=== PATIENT | male | born 1975 | race Caucasian/White ===

== ENCOUNTER 2017-03-23 08:37 | Emergency (ER) | payer MEDICAID ==
[~2017-03-23] VITALS: Ht 177.8 cm; Wt 90.7 kg
[2017-03-23 08:37] VITALS: BP_SYST 121
--- NOTE | 2017-03-23 08:37 | NUR ---
BROUGHT IN BY [facility] [address] AND KANCHAN TORRES, PLACED IN BED #1 AND TRIAGED. REPORT GIVEN TO JAROD
--- NOTE | 2017-03-23 08:37 | NUR ---
Placed in room [1] . Placed on monitor worker, blood pressure machine and pulse oximeter. To gown for exam. Side rails up.
--- NOTE | 2017-03-23 08:39 | NUR ---
ER at bedside examining patient.
--- NOTE | 2017-03-23 08:40 | NUR ---
pt brought in by [id number],Per medics,pt at work, felt aora,took lorazepam then had witness tonic clonic seizure for 30seconds to 1 min, no oral trama.pt is post ictal on arrival.
--- NOTE | 2017-03-23 08:40 | NUR ---
Seizure precautions in place. Seizure pads applied to gurney. Side rails up.
[2017-03-23] MEDS ORDERED: LORazepam 2 MG/ML VIAL (FOR ER USE) IVP ONE ×2 (08:45→10:00)
--- NOTE | 2017-03-23 08:51 | NUR ---
blood drawn by financial accounting manager.
[2017-03-23] MEDS ORDERED: LORazepam 2 MG/ML VIAL (FOR ER USE) ONE (08:54)
[2017-03-23 09:08] LABS: BASOPHILS % (AUTO) 0.4 % (0.0-2.0); EOSINOPHILS # (AUTO) 0.1 K/uL (0.0-0.4); EOSINOPHILS % (AUTO) 0.9 % (0.0-4.0); HEMATOCRIT 48.1 % (36-54); HEMOGLOBIN 15.4 g/dL (14.0-18.0); LYMPHOCYTES # (AUTO) 3.9 K/uL (1.0-5.5); LYMPHOCYTES % (AUTO) 40.6 % (20.5-51.5); MEAN CORPUSCULAR HEMOGLOBIN 27 pg (27-31); MEAN CORPUSCULAR HGB CONC 32 % (32-36); MEAN CORPUSCULAR VOLUME 86 fL (79.0-98.0); MONOCYTES # (AUTO) 0.7 K/uL (0.0-1.0); MONOCYTES % (AUTO) 7.2 % (1.7-9.3); NEUTROPHILS # (AUTO) 4.9 K/uL (1.8-7.7); NEUTROPHILS % (AUTO) 50.9 % (40.0-70.0); PLATELET COUNT (AUTO) 216 K/uL (130-430); RED BLOOD CELL COUNT(AUTO) 5.62 MIL/uL (4.2-6.2); RED CELL DISTRIBUTION WIDTH 12.6 % (9.0-15.0); WHITE BLOOD COUNT (AUTO) 9.6 K/uL (4.8-10.8)
[2017-03-23 09:11] LABS: ANION GAP 23 (5-15); CHLORIDE 102 mmol/L (98-107); GLUCOSE 170 mg/dL (70-99); POTASSIUM 4.2 mmol/L (3.5-5.1); SODIUM SERUM 138 mmol/L (136-145)
[2017-03-23 09:15] LABS: ALANINE AMINOTRANSFERASE 56 U/L (12-78); ALBUMIN 4.2 g/dL (3.4-4.8); ASPARTATE AMINOTRANSFERASE 26 U/L (10-37); CALCIUM 8.7 mg/dL (8.4-11.0); CREATININE 1.44 mg/dL (0.55-1.30); SALICYLATE 1 mg/dL (3-30); TOTAL BILIRUBIN 0.2 mg/dL (0.0-1.0); TOTAL PROTEIN, SERUM 7.7 g/dL (6.4-8.3); UREA NITROGEN, BLOOD 13 mg/dL (8-21)
[2017-03-23 09:21] LABS: ALCOHOL, BLOOD < 3 mg/dL (<10); GFR AFRICAN AMERICAN 70 mL/min (>90)
[2017-03-23 09:30] LABS: ACETAMINOPHEN < 1 ug/mL (1-30)
--- NOTE | 2017-03-23 11:13 | NUR ---
DR ZHONG AT BEDSIDE FOR EVALUATION
--- NOTE | 2017-03-23 11:40 | NUR ---
Patient given written and verbal discharge instructions and verbalizes understanding. ER MD discussed with patient the results and treatment provided. Patient in stable condition. ID arm band removed. IV catheter removed intact and dressing applied, no active bleeding. Rx of 0 given. Patient educated on pain management and to follow up with PMD. Pain Scale 0 . Opportunity for questions provided and answered.
[2017-03-23 11:41] VITALS: BP_SYST 112
== END 2017-03-23 11:40 | disposition home or self-care (01) ==
LOC: SED 08:37
DX: G40.909 Epilepsy, unspecified, not intractable, without status epilepticus (principal); Z88.0 Allergy status to penicillin
CPT/HCPCS: 36415; 80053; 84484; 85025; 85610; 85730; 93005; 96374; 96376; 99285; G0480; G0481; G0482; J2060

== ENCOUNTER 2018-03-20 09:55 | Emergency (ER) | payer MEDICAID ==
[~2018-03-20] VITALS: Ht 177.8 cm; Wt 86.2 kg
[2018-03-20 09:55] VITALS: BP_SYST 109
[2018-03-20] MEDS ORDERED: LORazepam 2 MG/ML VIAL (FOR ER USE) IVP ONE (10:15)
[2018-03-20 10:29] LABS: CALCIUM 9.3 mg/dL (8.4-11.0); CREATININE 1.2 mg/dL (0.55-1.30); POTASSIUM 3.9 mmol/L (3.5-5.1)
[2018-03-20 10:33] LABS: ALBUMIN 4.1 g/dL (3.4-4.8); TOTAL BILIRUBIN 0.5 mg/dL (0.0-1.0)
[2018-03-20 11:30] VITALS: BP_SYST 111
== END 2018-03-20 11:30 | disposition home or self-care (01) ==
LOC: SED 09:55
DX: R56.9 Unspecified convulsions (principal); Z88.0 Allergy status to penicillin
CPT/HCPCS: 36415; 80053; 96374; 99284; J2060

== ENCOUNTER 2019-07-13 13:07 | Emergency (ER) | payer MEDICAID ==
[~2019-07-13] VITALS: Ht 175.3 cm; Wt 106.6 kg
[2019-07-13 13:07] VITALS: BP_SYST 104
--- NOTE | 2019-07-13 13:07 | NUR ---
PLACED IN BED 7, TRIAGED AT BEDSIDE BIB [facility] S/P WITNESSED SEIZURE. DENIES ANY COMPLAINTS. A&OX3 SPEAKING IN FULL SENTENCES
--- NOTE | 2019-07-13 13:15 | NUR ---
ER at bedside examining patient.
[2019-07-13] MEDS ORDERED: NACL 0.9% 1,000 ML IV ONE (13:17)
[2019-07-13] MEDS ORDERED: LORazepam 2 MG/ML VIAL IVP ONE (13:30)
[2019-07-13] MEDS ORDERED: levETIRAcetam 500 MG TABLET PO ONE (13:30)
--- NOTE | 2019-07-13 13:30 | NUR ---
pt arrives s/p seizure. Pt reports that he has not ahd a seizure for 14 months. He currently under the care of a neurologist. campus monitor placed.
[2019-07-13 13:38] LABS: BASOPHILS % (AUTO) 0.5 % (0.0-2.0); EOSINOPHILS % (AUTO) 0.6 % (0.0-4.0); HEMATOCRIT 46.9 % (36-54); HEMOGLOBIN 15.7 g/dL (14.0-18.0); LYMPHOCYTES # (AUTO) 2.9 K/uL (1.0-5.5); LYMPHOCYTES % (AUTO) 34.6 % (20.5-51.5); MEAN CORPUSCULAR HEMOGLOBIN 30 pg (27-31); MEAN CORPUSCULAR HGB CONC 34 % (32-36); MEAN CORPUSCULAR VOLUME 90 fL (79.0-98.0); MONOCYTES # (AUTO) 0.4 K/uL (0.0-1.0); MONOCYTES % (AUTO) 4.9 % (1.7-9.3); NEUTROPHILS % (AUTO) 59.4 % (40.0-70.0); PLATELET COUNT (AUTO) 214 K/uL (130-430); RED BLOOD CELL COUNT(AUTO) 5.22 MIL/uL (4.2-6.2); RED CELL DISTRIBUTION WIDTH 13.1 % (9.0-15.0); WHITE BLOOD COUNT (AUTO) 8.3 K/uL (4.8-10.8)
[2019-07-13 13:48] LABS: CALCIUM 8.9 mg/dL (8.4-11.0); CREATININE 1.41 mg/dL (0.55-1.30); POTASSIUM 4.2 mmol/L (3.5-5.1)
[2019-07-13 13:52] LABS: INR 1.1 (0.80-1.20); PROTHROMBIN TIME 10.8 SECS (9.5-12.5); TOTAL BILIRUBIN 0.4 mg/dL (0.0-1.0)
--- NOTE | 2019-07-13 14:40 | NUR ---
Ativan 1mg IVP given per Md order.
--- NOTE | 2019-07-13 14:57 | NUR ---
Patient given written and verbal discharge instructions and verbalizes understanding. ER MD discussed with patient the results and treatment provided. Patient in stable condition. ID arm band removed. IV catheter removed intact and dressing applied, no active bleeding. Rx of Ativan 1mg given. Patient educated on pain management and to follow up with PMD. Pain Scale 0/10.Opportunity for questions provided and answered. Medication side effect fact sheet provided.
[2019-07-13 18:53] VITALS: BP_SYST 102
== END 2019-07-13 14:59 | disposition home or self-care (01) ==
LOC: SED 13:07
DX: G40.909 Epilepsy, unspecified, not intractable, without status epilepticus (principal); Z88.0 Allergy status to penicillin
CPT/HCPCS: 36415; 70450; 71045; 80053; 82150; 82542; 82550; 83690; 84484; 85025; 85610; 85730; 93005; 96374; 99284; J2060; J7030